=== PATIENT | male | born 1940 | race Caucasian/White ===

== ENCOUNTER 2021-06-19 07:54 | Inpatient (IN) | payer MEDICARE, BC ==
[~2021-06-19] VITALS: Ht 182.9 cm; Wt 100.1 kg
--- NOTE | 2021-06-19 08:09 | PHYS DOC ---
General Adult EDM: Chief Complaint: WEAKNESS/GENERALIZED HPI: HPI: 81-year-old male presents with weakness. The patient woke up at 430 this morning to go to the restroom and he felt weak but was able to get to the bathroom with his cane. He woke up again around 5:30 AM and was too weak to stand on his own. He slowly crumpled to the floor and called 911. He denies any injuries. The patient was feeling fine yesterday. He does not have any other specific complaints at this time. He denies fever or chills. Denies any falls or trauma. He has had no medication changes. He did not take any of his medications this morning prior to getting to the ER. On arrival his blood pressure is elevated. The patient lives alone. Review of Systems: Review of Systems: Constitutional: Denies fever or chills. Generalized weakness. Eyes: Denies change in visual acuity HENT: Denies nasal congestion or sore throat Respiratory: Denies cough or shortness of breath Cardiovascular: Denies chest pain or edema GI: Denies abdominal pain, nausea, vomiting, bloody stools or diarrhea : Denies dysuria Musculoskeletal: Denies back pain or joint pain Integument: Denies rash Neurologic: Denies headache, focal weakness or sensory changes Endocrine: Denies polyuria or polydipsia Lymphatic: Denies swollen glands Psychiatric: Denies depression or anxiety Allergies: Allergies: Allergies Coded Allergies Type Severity Reaction Last Updated Verified No Known Drug Allergies 06/19/21 No Physical Exam: PE: Constitutional: Well developed, well nourished, no acute distress, non-toxic appearance. [] HENT: Normocephalic, atraumatic, bilateral external ears normal, oropharynx moist, no oral exudates, nose normal. [] Eyes: PERRLA, EOMI, conjunctiva normal, no discharge. [] Neck: Normal range of motion, no tenderness, supple, no stridor. [] Cardiovascular: Heart rate regular rhythm, no murmur [] Lungs & Thorax: Bilateral breath sounds clear to auscultation [] Abdomen: Bowel sounds normal, soft, no tenderness, no masses, no pulsatile masses. [] Skin: Warm, dry, no erythema, no rash. [] Back: No tenderness, no CVA tenderness. [] Extremities: No tenderness, no cyanosis, no clubbing, ROM intact, no edema. [] Neurologic: Alert and oriented X 3, normal motor function, normal sensory function, no focal deficits noted. [] Psychologic: Affect normal, judgement normal, mood normal. [] EKG: EKG: Sinus rhythm, rate 56, normal axis, no ST elevation or depression. Prolonged KS interval of 288. [] Radiology/Procedures: Radiology/Procedures: [] Impressions: EXAM: CHEST 1 VIEW History: Weakness COMPARISON: None available. TECHNIQUE: Single portable radiograph of the chest FINDINGS: The cardiac silhouette is unremarkable. The lungs are clear bilaterally. The costophrenic sulci are clear and well demarcated. IMPRESSION: No radiographic evidence of an acute cardiopulmonary process. Electronically signed by: Bert Oliveira MD (06/19/2021 8:45 AM) [id number] DICTATED AND SIGNED BY: BERT OLIVEIRA MD DATE: 06/19/21 0843 CC: JENNA GIRON DO; SNOW CAZARES ~MTH0 0 CT HEAD INDICATION: Weakness COMPARISON: None Available. Exposure: One or more of the following individualized dose reduction techniques were utilized for this examination: 1. Automated exposure control 2. Adjustment of the mA and/or kV according to patient size 3. Use of iterative reconstruction technique TECHNIQUE: 5 mm contiguous axial images were obtained from the skull base to the vertex in both bone and soft tissue algorithm. FINDINGS: No abnormal attenuation within the brain parenchyma. No evidence of acute intracranial hemorrhage. No extra-axial fluid collections. No mass effect or midline shift. Ventricular size is appropriate. Basal cisterns are patent. No fractures identified.Laughlin-white differentiation is preserved.Globes and orbits are within normal limits. Mild opacification of the right mastoid air cells. IMPRESSION: 1. No acute intracranial findings. 2. Mild opacification of the right mastoid air cells could be secondary to fluid or mastoiditis. Correlate clinically. Electronically signed by: Bert Oliveira MD (06/19/2021 10:27 AM) [id number] DICTATED AND SIGNED BY: BERT OLIVEIRA MD DATE: 06/19/21 1021 CC: JENNA GIRON DO; TROY LEUNG MD ~MTH0 0 Heart Score: C/O Chest Pain: N/A Risk Factors: Risk Factors: DM, Current or recent (<one month) smoker, HTN, HLP, family history of CAD, obesity. Risk Scores: Score 0 - 3: 2.5% MACE over next 6 weeks - Discharge Home Score 4 - 6: 20.3% MACE over next 6 weeks - Admit for Clinical Observation Score 7 - 10: 72.7% MACE over next 6 weeks - Early Invasive Strategies Course & Med Decision Making: Course & Med Decision Making Pertinent Labs and Imaging studies reviewed. (See chart for details) The patient's EKG is negative for acute findings. His chest x-ray is negative for acute findings. His labs are unremarkable. We will give the patient 0.2 clonidine for his elevated blood pressure. We attempted to get the patient out of bed he feels like his right leg just has no strength. He can feel us touching the extremity. Head CT is pending. Head CT is negative for acute findings. There is partial opacification of mastoid cells. The patient does not have any tenderness in this area. See patient read for more details. He is having periods of bradycardia getting down into the 40s and even the 30s. I have paged cardiology. I spoke with the nurse practitioner for cardiology and she believes the patient can be admitted to this facility at this time. We will not give him any more AV asuncion blocking medications. Have ordered 0.5 of atropine and it has improved the patient's blood pressure and heart rate. I spoke with Dr. Carballo and he has accepted the patient for admission. [] Ponce Disclaimer: Ponce Disclaimer: This electronic medical record was generated, in whole or in part, using a voice recognition dictation system. Departure Departure: Impression: Primary Impression: Bradycardia Additional Impression: Weakness Disposition: ADMITTED INPATIENT Admitting Physician: Carine Carballo Condition: STABLE JENNA GIRON Jun 19, 2021 08:09
[2021-06-19 08:33] LABS: BASO # 0.1 x10^3/uL (0.0-0.2); BASO % 1 % (0-3); EOS # 0.1 x10^3/uL (0.0-0.7); EOS % 1 % (0-3); HEMATOCRIT 45.4 % (39.0-53.0); HEMOGLOBIN 15.2 g/dL (13.0-17.5); LYMPH # 1.1 x10^3/uL (1.0-4.8); LYMPH % 16 % (24-48); MEAN CORPUSCULAR HEMOGLOBIN 31 pg (25-35); MEAN CORPUSCULAR HGB CONC 34 g/dL (31-37); MEAN CORPUSCULAR VOLUME 93 fL (79-100); MONO # 0.4 x10^3/uL (0.0-1.1); MONO % 6 % (0-9); NEUT # 5.1 x10^3uL (1.8-7.7); NEUT % 76 % (31-73); PLATELET COUNT 156 x10^3/uL (140-400); RED BLOOD COUNT 4.87 x10^6/uL (4.30-5.70); RED CELL DISTRIBUTION WIDTH 14.7 % (11.5-14.5); WHITE BLOOD COUNT 6.7 x10^3/uL (4.0-11.0)
--- NOTE | 2021-06-19 08:40 | EKG ---
[address] [address] Test Date: 2021-06-19 Test Time: 08:31:13 Pat Name: TAHIR TATE Department: Room: Gender: M [employer] Operator: DOMINIQUE : 1940 Requested By: JENNA GIRON Order Number: [id number] Reading MD: Measurements Intervals [place] Rate: 56 P: 0 DE: 288 QRS: 31 QRSD: 76 T: 40 QT: 420 QTc: 408 Interpretive Statements SINUS RHYTHM ATRIAL PREMATURE COMPLEX(ES), BIGEMINY PROLONGED DE INTERVAL QRS(T) CONTOUR ABNORMALITY CONSISTENT WITH ANTEROSEPTAL INFARCT AGE UNDETERMINED T ABNORMALITY IN INFERIOR LEADS ABNORMAL ECG RI6.02 No previous ECG available for comparison
[2021-06-19 08:41] LABS: CALCIUM 8.9 mg/dL (8.5-10.1); GFR 71.9; POTASSIUM 4.5 mmol/L (3.5-5.1)
[2021-06-19 08:46] LABS: BILIRUBIN,URINE NEG (NEG); CLARITY,URINE CLEAR; COLOR,URINE YELLOW; GLUCOSE,URINE NEG (NEG); NITRITE,URINE NEG (NEG); UROBILINOGEN,URINE 0.2 mg/dL (0.2 mg/dL)
[2021-06-19 08:47] LABS: BACTERIA,URINE 0 /HPF (0-FEW); SQUAMOUS EPITHELIAL CELL,UR OCC /LPF; WBC,URINE OCC /HPF (0-4)
--- NOTE | 2021-06-19 08:48 | RAD ---
EXAM: CHEST 1 VIEW History: Weakness COMPARISON: None available. TECHNIQUE: Single portable radiograph of the chest FINDINGS: The cardiac silhouette is unremarkable. The lungs are clear bilaterally. The costophrenic sulci are clear and well demarcated. IMPRESSION: No radiographic evidence of an acute cardiopulmonary process. Electronically signed by: Bert Oliveira MD (06/19/2021 8:45 AM) [id number]
[2021-06-19 08:50] LABS: ALBUMIN 4.1 g/dL (3.4-5.0); ALBUMIN/GLOBULIN RATIO 1.2 (1.0-1.7); TOTAL BILIRUBIN 0.7 mg/dL (0.2-1.0); TOTAL PROTEIN 7.6 g/dL (6.4-8.2)
[2021-06-19] MEDS ORDERED: cloNIDine HCL 0.1 MG TABLET ONE (09:29)
[2021-06-19] MEDS ORDERED: cloNIDine HCL 0.2 MG TABLET PO ONE (09:45)
--- NOTE | 2021-06-19 10:30 | RAD ---
CT HEAD INDICATION: Weakness COMPARISON: None Available. Exposure: One or more of the following individualized dose reduction techniques were utilized for thi s examination: 1. Automated exposure control 2. Adjustment of the mA and/or kV according to patient size 3. Use of iterative reconstruction technique TECHNIQUE: 5 mm contiguous axial images were obtained from the skull base to the vertex in both bone and soft tissue algorithm. FINDINGS: No abnormal attenuation within the brain parenchyma. No evidence of acute intracranial hemorrhage. No extra-axial fluid collections. No mass effect or midline shift. Ventricular size is appropriate. Basal cisterns are patent. No fractures identified.Laughlin-white differentiation is preserved.Globes and orbits are within normal l imits. Mild opacification of the right mastoid air cells. IMPRESSION: 1. No acute intracranial findings. 2. Mild opacification of the right mastoid air cells could be secondary to fluid or mastoiditis. Keith elate clinically. Electronically signed by: Bert Oliveira MD (06/19/2021 10:27 AM) [id number]
[2021-06-19] MEDS ORDERED: ATROPINE 0.5 MG/5 ML DISP.SYRIN. IV ONE (11:30)
--- NOTE | 2021-06-19 13:07 | EKG ---
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
[2021-06-19] MEDS ORDERED: LISINOPRIL 10 MG TABLET PO ONE (13:30)
[2021-06-19] MEDS ORDERED: amLODIPine BESYLATE 10 MG TABLET PO ONE (14:00)
[2021-06-19] MEDS ORDERED: PANTOPRAZOLE 40 MG TABLET. PO ONE (14:00)
--- NOTE | 2021-06-19 14:00 | PDOC2 ---
CONSULT DOS: DATE: 06/19/21 TIME: 14:00 Reason for Consult: Bradycardia Referring Physician: Dr. Carballo Chief Complaint Right sided weakness Source: Chart review, Patient Problem List Problems Medical Problems: (1) Bradycardia Status: Acute (2) Weakness Status: Acute History of Present Illness 81 y/o male without any previous cardiac history presented with right sided weakness, tingling and numbness in right arm and leg that he noticed this morning when he got out of bed to use the restroom. He was found to be bradycardic in ED that got worse after he received clonidine for uncontrolled HTN. This however improved after IV atropine given in ED. He denied any dizziness or syncope. He also denied any chest pain, orthopnea/PND or palpitations. Past Medical History Hypertension Hyperlipidemia Hiatal hernia Gastroesophageal reflux disease. Past Surgical History Left total hip arthroplasty Cholecystectomy Hernia repair Tonsillectomy Family History HTN, CAD Social History Quit smoking several years ago, occasional alcohol use, denied any drug use Current Medications Current Medications Clonidine HCl (Catapres) 0.2 mg 1X ONCE PO Last administered on 06/19/21at 09:39; Start 06/19/21 at 09:45; Stop 06/19/21 at 09:46; Status DC Clonidine HCl (Catapres) 0.1 mg STK-MED ONCE .ROUTE ; Start 06/19/21 at 09:29; Stop 06/19/21 at 09:30; Status DC Atropine Sulfate (ATROPINE 0.5mg SYRINGE) 0.5 mg 1X ONCE IV Last administered on 06/19/21at 11:48; Start 06/19/21 at 11:30; Stop 06/19/21 at 11:31; Status DC Lisinopril (Prinivil) 20 mg 1X ONCE PO Last administered on 06/19/21at 13:32; Start 06/19/21 at 13:30; Stop 06/19/21 at 13:31; Status DC Amlodipine Besylate (Norvasc) 10 mg DAILY PO ; Start 06/20/21 at 09:00 Lisinopril (Prinivil) 10 mg DAILY PO ; Start 06/20/21 at 09:00 Pantoprazole Sodium (Protonix) 40 mg DAILYAC PO ; Start 06/20/21 at 07:30 Simvastatin (Zocor) 20 mg HS PO ; Start 06/19/21 at 21:00 Amlodipine Besylate (Norvasc) 10 mg 1X ONCE PO ; Start 06/19/21 at 14:00; Stop 06/19/21 at 14:01 Pantoprazole Sodium (Protonix) 40 mg 1X ONCE PO ; Start 06/19/21 at 14:00; Stop 06/19/21 at 14:01 Allergies: Coded Allergies: No Known Drug Allergies (Unverified , 06/19/21) PSYCHOLOGICAL ROS: No: Hallucinations Eyes: No: Loss of vision HEENT: No: Epistaxis Respiratory: No: Shortness of breath Cardiovascular: No: Chest Pain Gastrointestinal: No: Vomiting Genitourinary: No: [place] Neurological: No: Seizures Skin: No: Rash General: Alert, Oriented X3 HEENT: Atraumatic Lungs: Clear to auscultation Heart: Regular rate Abdomen: Soft Extremities: No edema Psych/Mental Status: Mood NL VITALS Vital Signs Date Time Temp Pulse Resp B/P (MAP) Pulse Ox O2 Delivery O2 Flow Rate FiO2 06/19/21 13:32 55 184/76 06/19/21 13:30 24 97 Room Air 06/19/21 08:05 98.9 Labs Laboratory Tests Test 06/19/21 08:00 06/19/21 08:15 Urine Collection Type Unknown Urine Color Yellow Urine Clarity Clear Urine pH 7.0 Urine Specific [place] 1.020 Urine Protein 100 mg/dl (NEG-TRACE) Urine Glucose (UA) Neg mg/dL (NEG) Urine Ketones (Stick) Neg mg/dL (NEG) Urine Blood Small (NEG) Urine Nitrite Neg (NEG) Urine Bilirubin Neg (NEG) Urine Urobilinogen Dipstick 0.2 mg/dL (0.2 mg/dL) Urine Leukocyte Esterase Neg (NEG) Urine RBC 6-10 /HPF (0-2) Urine WBC Occ /HPF (0-4) Urine Squamous Epithelial Cells Occ /LPF Urine Bacteria 0 /HPF (0-FEW) White Blood Count 6.7 x10^3/uL (4.0-11.0) Red Blood Count 4.87 x10^6/uL (4.30-5.70) Hemoglobin 15.2 g/dL (13.0-17.5) Hematocrit 45.4 % (39.0-53.0) Mean Corpuscular Volume 93 fL (79-100) Mean Corpuscular Hemoglobin 31 pg (25-35) Mean Corpuscular Hemoglobin Concent 34 g/dL (31-37) Red Cell Distribution Width 14.7 % (11.5-14.5) Platelet Count 156 x10^3/uL (140-400) Neutrophils (%) (Auto) 76 % (31-73) Lymphocytes (%) (Auto) 16 % (24-48) Monocytes (%) (Auto) 6 % (0-9) Eosinophils (%) (Auto) 1 % (0-3) Basophils (%) (Auto) 1 % (0-3) Neutrophils # (Auto) 5.1 x10^3uL (1.8-7.7) Lymphocytes # (Auto) 1.1 x10^3/uL (1.0-4.8) Monocytes # (Auto) 0.4 x10^3/uL (0.0-1.1) Eosinophils # (Auto) 0.1 x10^3/uL (0.0-0.7) Basophils # (Auto) 0.1 x10^3/uL (0.0-0.2) Sodium Level 141 mmol/L (136-145) Potassium Level 4.5 mmol/L (3.5-5.1) Chloride Level 105 mmol/L (98-107) Carbon Dioxide Level 25 mmol/L (21-32) Anion Gap 11 (6-14) Blood Urea Nitrogen 17 mg/dL (8-26) Creatinine 1.0 mg/dL (0.7-1.3) Estimated GFR (Cockcroft-Gault) 71.9 BUN/Creatinine Ratio 17 (6-20) Glucose Level 144 mg/dL (70-99) Calcium Level 8.9 mg/dL (8.5-10.1) Total Bilirubin 0.7 mg/dL (0.2-1.0) Aspartate Amino Transf (AST/SGOT) 36 U/L (15-37) Alanine Aminotransferase (ALT/SGPT) 39 U/L (16-63) Alkaline Phosphatase 108 U/L (46-116) Troponin I Quantitative < 0.017 ng/mL (0-0.055) AJ-Asr-L-Type Natriuretic Peptide 221 pg/mL (0-449) Total Protein 7.6 g/dL (6.4-8.2) Albumin 4.1 g/dL (3.4-5.0) Albumin/Globulin Ratio 1.2 (1.0-1.7) Assessment/Plan 1. Right sided weakness, tingling and numbness: ? TIA. CT head negative for acute intracranial process. Consider neurology consultation 2. 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 HR improved after atropine administration in ED. Patient denied any previous cardiac history or any history if dizziness or syncope. Continue to monitor tele and consider outpatient event monitor and 2D echo 3. Accelerated HTN: resume home anti-hypertensives and titrate for better control 4. HLP: statins Thank you for your consultation MARTIR MEADOWS MD Jun 19, 2021 14:00
[2021-06-19] MEDS ORDERED: ONDANSETRON PF 4 MG/2 ML VIAL. IVP PRN (14:30)
[2021-06-19] MEDS ORDERED: ACETAMINOPHEN 325 MG TABLET PO PRN (14:30)
[2021-06-19] MEDS ORDERED: ASPIRIN CHEWABLE 81 MG TABLET. PO ONE (14:30)
--- NOTE | 2021-06-19 14:30 | HP ---
ADMIT DATE: 06/19/2021 HISTORY OF PRESENT ILLNESS: The patient is an 81-year-old male patient who presented to the Emergency Room with a complaint of weakness. The patient woke up at 4:30 this morning to go to the restroom and felt weak, but was able to get to the bathroom with his cane. He woke up again at around 5:30 and was too weak to stand on his own. He slowly crumbled to the floor and called 911. He denied any injuries. The patient was feeling fine yesterday. He does not have any other specific complaints at this time. In particular, denied any chest pain, shortness of breath, orthopnea, paroxysmal nocturnal dyspnea. There were no changes in his medication. He has not taken any of his medication prior to arrival to the Emergency Room where he was evaluated and was found to be hypertensive, had intermittent episodes of bradycardia, possible complete second-degree and complete heart block, his first degree. His EKG showed the consistent prolonged CA interval. The patient was admitted for further evaluation and treatment. His heart rate was down in the mid 30 and was given atropine and heart rate accelerated from 50-60 beats per minute. He has had lab work done, which were unremarkable. His first set of cardiac enzyme was less than 0.017. PAST MEDICAL HISTORY: Significant for hypertension, hyperlipidemia, hiatal hernia and gastroesophageal reflux disease. PAST SURGICAL HISTORY: Significant for left total hip arthroplasty, cholecystectomy, periumbilical hernia repair, tonsillectomy and had colonoscopy. ALLERGIES: He has no known drug allergies. MEDICATIONS: He is currently on amlodipine besylate 10 mg once a day, lisinopril 20 mg once a day, omeprazole 40 mg once a day and simvastatin 20 mg at bedtime. FAMILY HISTORY: Has one brother younger at age of 78 because of diabetes complications. Father at age of 79 because of lung cancer. Mother at age of 77 because of myocardial infarction. SOCIAL HISTORY: He is , has five children from previous marriage. He quit smoking about 35 years ago. He drinks one beer a week. He does not use any drugs. 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 REVIEW OF SYSTEMS: The patient denied any blurring of vision, cataracts, glaucoma or macular degeneration. Denied any earache, tinnitus or sensory deafness. Denied any nosebleed, stuffy nose or postnasal drip. Denied any sore throat, sore tongue, toothache, hoarseness of voice or difficulty swallowing. Denied any nausea, vomiting, diarrhea or constipation. Denied any hematemesis, melena or hematochezia. Denied any dysuria, frequency or hematuria. He denied any chest pain, shortness of breath, orthopnea or paroxysmal nocturnal dyspnea. Denied any cough, phlegm or hemoptysis. Denied any chills, rigors or fever. He did not really complain of any dizziness or lightheadedness, but rather generalized weakness. PHYSICAL EXAMINATION: GENERAL: On arrival to the Emergency Room, the patient looked well and was clearly in no apparent respiratory distress. There was no pallor, jaundice, cyanosis or thyromegaly. No jugular venous distention. No limb edema. VITAL SIGNS: His heart rate was 62, blood pressure was 192/81, temperature was 98.9, respiratory rate 24, and oxygen saturation was 97% on room air. HEAD, EYES, EARS, NOSE AND THROAT: Normocephalic, atraumatic. NECK: Supple. HEART: Normal first and second heart sounds. No gallop, rub or murmur. CHEST: Clear to auscultation. No crepitation or rhonchi. ABDOMEN: Distended, soft, nontender. NEUROLOGIC: He is awake, alert, responding appropriately. All cranial nerves intact. He moves extremities without difficulty. LABORATORY DATA: His lab work on arrival showed a white cell count of 6700, hemoglobin 15, hematocrit 45, MCV 93, and platelet count of 156,000. His chemistry showed a serum sodium 141, potassium 4.5, chloride 105, bicarbonate 25, anion gap of 11, BUN 17, creatinine 1, estimated GFR was 72 mL per minute. His glucose was 44, calcium was 8.9. Total bilirubin, AST, ALT, alkaline phosphatase were normal. His troponin I was less than 0.017. Beta natriuretic peptide was 221. Total protein 7.6, albumin was 4.1. Urinalysis essentially unremarkable. The patient has had a CT scan of the head showed no acute intracranial findings, mild opacification of the right mastoid air cells could be secondary to fluid or mastoiditis. His chest x-ray showed the cardiac silhouette is unremarkable. The lungs are clear bilaterally costophrenic sulci are clear and well demarcated. ASSESSMENT AND PLAN: The patient was admitted with weakness and bradycardia with intermittent heart block. Other medical problems include hypertension, hyperlipidemia, gastroesophageal reflux disease and large hiatal hernia. My plan is to continue with all his medication as none of them will slow the heart rate and consult the Cardiology team, do two more sets of cardiac enzyme and fasting lipid profile as he eventually require permanent pacemaker. YESIKA DR: Diana TID: [id number]
[2021-06-19 18:12] VITALS: BP 192/117
[2021-06-19 19:46] VITALS: BP 193/68
[2021-06-19] MEDS ORDERED: SIMVASTATIN 20 MG TABLET PO SCH (21:00)
[2021-06-20 00:12] VITALS: BP 191/68
--- NOTE | 2021-06-20 01:05 | NUR ---
The patient, TAHIR TATE, 81 y/o, M admitted by ELIJAH FRAIRE MD, was given written information regarding hospital policies, unit procedures and contact persons. Valuables were checked and vital signs obtained. PT stated he is a DNR and has a living will at home. Code status verified with second nurse and status changed to DNR. Reviewed with PT his PMH, PSH, SH, FH and medications.
--- NOTE | 2021-06-20 01:52 | EKG ---
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
[2021-06-20 01:57] VITALS: BP 191/71
[2021-06-20] MEDS ORDERED: hydrALAZINE 20 MG/ML VIAL. IV PRN ×2 (02:00→09:45)
[2021-06-20] MEDS ORDERED: ATROPINE 0.5 MG/5 ML DISP.SYRIN. IV PRN (02:00)
--- NOTE | 2021-06-20 04:41 | NUR ---
PT's heart rate consistently in 20s with elevated blood pressure. Dr. Chao telephoned. Orders placed. PT is now resting comfortably, heart rate in mid to high 50s. BP will be reassessed.
[2021-06-20 06:33] VITALS: BP 173/76
[2021-06-20 06:47] LABS: CALCIUM 8.6 mg/dL (8.5-10.1); CREATININE 1.1 mg/dL (0.7-1.3); GFR 64.4
[2021-06-20] MEDS ORDERED: PANTOPRAZOLE 40 MG TABLET. PO SCH (07:30)
[2021-06-20] MEDS ORDERED: LISINOPRIL 10 MG TABLET PO SCH (09:00)
[2021-06-20] MEDS ORDERED: amLODIPine BESYLATE 5 MG TABLET PO SCH (09:00)
[2021-06-20 09:15] VITALS: BP 196/71
--- NOTE | 2021-06-20 09:46 | PDOC ---
CARDIO Progress Notes Date & Time Date of Service DATE: 06/20/21 TIME: 09:41 Time of Evaluation 09:41 Subjective Notes No chest pain, palpitations, dizziness. Does report mild right sided weakness this morning Vitals Vitals Vital Signs Date Time Temp Pulse Resp B/P (MAP) Pulse Ox O2 Delivery O2 Flow Rate FiO2 06/20/21 09:15 97.5 58 20 196/71 (112) 94 Room Air Weight Weight [ ] Input and Output I.O. Intake and Output 06/20/21 07:00 Intake Total 400 ml Output Total 1425 ml Balance -1025 ml Intake Oral 400 ml Output Urine Total 1425 ml # Voids 2 Laboratory Labs Laboratory Tests Test 06/19/21 08:00 06/19/21 08:15 06/19/21 13:45 06/19/21 18:38 Urine Collection Type Unknown Urine Color Yellow Urine Clarity Clear Urine pH 7.0 Urine Specific [place] 1.020 Urine Protein 100 mg/dl (NEG-TRACE) Urine Glucose (UA) Neg mg/dL (NEG) Urine Ketones (Stick) Neg mg/dL (NEG) Urine Blood Small (NEG) Urine Nitrite Neg (NEG) Urine Bilirubin Neg (NEG) Urine Urobilinogen Dipstick 0.2 mg/dL (0.2 mg/dL) Urine Leukocyte Esterase Neg (NEG) Urine RBC 6-10 /HPF (0-2) Urine WBC Occ /HPF (0-4) Urine Squamous Epithelial Cells Occ /LPF Urine Bacteria 0 /HPF (0-FEW) White Blood Count 6.7 x10^3/uL (4.0-11.0) Red Blood Count 4.87 x10^6/uL (4.30-5.70) Hemoglobin 15.2 g/dL (13.0-17.5) Hematocrit 45.4 % (39.0-53.0) Mean Corpuscular Volume 93 fL (79-100) Mean Corpuscular Hemoglobin 31 pg (25-35) Mean Corpuscular Hemoglobin Concent 34 g/dL (31-37) Red Cell Distribution Width 14.7 % (11.5-14.5) Platelet Count 156 x10^3/uL (140-400) Neutrophils (%) (Auto) 76 % (31-73) Lymphocytes (%) (Auto) 16 % (24-48) Monocytes (%) (Auto) 6 % (0-9) Eosinophils (%) (Auto) 1 % (0-3) Basophils (%) (Auto) 1 % (0-3) Neutrophils # (Auto) 5.1 x10^3uL (1.8-7.7) Lymphocytes # (Auto) 1.1 x10^3/uL (1.0-4.8) Monocytes # (Auto) 0.4 x10^3/uL (0.0-1.1) Eosinophils # (Auto) 0.1 x10^3/uL (0.0-0.7) Basophils # (Auto) 0.1 x10^3/uL (0.0-0.2) Sodium Level 141 mmol/L (136-145) Potassium Level 4.5 mmol/L (3.5-5.1) Chloride Level 105 mmol/L (98-107) Carbon Dioxide Level 25 mmol/L (21-32) Anion Gap 11 (6-14) Blood Urea Nitrogen 17 mg/dL (8-26) Creatinine 1.0 mg/dL (0.7-1.3) Estimated GFR (Cockcroft-Gault) 71.9 BUN/Creatinine Ratio 17 (6-20) Glucose Level 144 mg/dL (70-99) Calcium Level 8.9 mg/dL (8.5-10.1) Total Bilirubin 0.7 mg/dL (0.2-1.0) Aspartate Amino Transf (AST/SGOT) 36 U/L (15-37) Alanine Aminotransferase (ALT/SGPT) 39 U/L (16-63) Alkaline Phosphatase 108 U/L (46-116) Troponin I Quantitative < 0.017 ng/mL (0-0.055) < 0.017 ng/mL (0-0.055) < 0.017 ng/mL (0-0.055) LK-Xgv-G-Type Natriuretic Peptide 221 pg/mL (0-449) Total Protein 7.6 g/dL (6.4-8.2) Albumin 4.1 g/dL (3.4-5.0) Albumin/Globulin Ratio 1.2 (1.0-1.7) Test 06/19/21 20:20 06/20/21 06:12 Coronavirus (COVID-19)(PCR) Negative (NEGATIVE) SARS-CoV-2 Antigen (Rapid) Negative (NEGATIVE) Sodium Level 140 mmol/L (136-145) Potassium Level 4.0 mmol/L (3.5-5.1) Chloride Level 105 mmol/L (98-107) Carbon Dioxide Level 26 mmol/L (21-32) Anion Gap 9 (6-14) Blood Urea Nitrogen 16 mg/dL (8-26) Creatinine 1.1 mg/dL (0.7-1.3) Estimated GFR (Cockcroft-Gault) 64.4 Glucose Level 116 mg/dL (70-99) Calcium Level 8.6 mg/dL (8.5-10.1) Physical Exams HEENT: Neck Supple W Full Motion Chest: Symmetric Lungs: Clear to Auscultation Heart: other (2nd degress type II AVB rate 65) Abdomen: Soft N/T Extremities: No Edema Neurology: alert, oriented, follow commands Assessment Assessment 1. Right sided weakness, tingling and numbness: ? TIA vs acute CVA. CT head negative for acute intracranial process. Neurology consulted 2. Bradyarrhythmia/SSS: noted with high-grade AV block. In complete heart block overnight with HR in low 30's. Occasional period in upper 20's. No syncope. s/p atropine. Presently second degree type II with HR in mid 60's. 3. Accelerated HTN: labile 4. HLP: statins Recommendations Will need PPM implantation for SSS. R/b discussed with patient and he is agreeable Will transfer down to [facility] this morning Will arrange for MRI of brain prior to PPM implant given ongoing right-sided weakness Keep NPO Hydralazine IV PRN PRIYA FREY APRN Jun 20, 2021 09:46
--- NOTE | 2021-06-20 10:15 | DS ---
DATE OF DISCHARGE: 06/20/2021 ATTENDING PHYSICIAN: Dr. Carballo/Dr. Mccabe. FINAL DISCHARGE DIAGNOSES: 1. Complete heart block. 2. Syncopal episode due to heart block. 3. Recent transient ischemic attack symptoms. 4. Bradycardia. 5. Gastroesophageal reflux disease and hiatal hernia. 6. Essential hypertension. 7. Hyperlipidemia. HISTORY AND PHYSICAL: The patient is an 81-year-old gentleman with known TIAs. He presented with frequent falls and an ECG consistent with heart block. Heart rate was in the 30. PHYSICAL EXAMINATION: Please see the dictated note. PERTINENT LABORATORY AND X-RAY STUDIES: Hemoglobin 15.2 g/dL, white count 6700. Electrolytes within normal range. Creatinine is 1.0 mg percent. Three sets of cardiac enzymes negative for coronary ischemia. Chest x-ray as noted. ECG showed evidence of complete heart block with ventricular escape beats of 30. COURSE IN HOSPITAL: The patient was admitted and placed on telemetry monitoring. He did receive several doses of atropine for symptomatic bradycardia. Formal cardiology consultation was obtained. Arrangements were then made for the patient to be transferred to [facility] for placement of permanent pacemaker. He is not on any prescription meds or beta blockers. Therefore, on the second hospital day, he was transferred to [facility] via ambulance. Dr. Carballo will admit him there with consult to cardiology services. In addition, MRI of the brain has been ordered, they will have formal neurologic consultation there too. The patient was then discharged from our hospital in stable condition with explicit written and followup care. TOTAL DISCHARGE TIME SPENT: [address]: Kong TID: [id number] CC: AJAY GRIMM MD
--- NOTE | 2021-06-20 11:10 | NUR ---
Nursing note pt discharged at 0940 via ems for transfer to [facility] pr given written and verbal instructions with verbal statement of understanding achieved.
== END 2021-06-20 10:27 | disposition short-term general hospital (02) | DRG 310 ==
LOC: ER 07:54 → 1 SOUTH 21:52
PROVIDERS: ADMIT Internal Medicine; ATTEND Internal Medicine
DX: I44.2 Atrioventricular block, complete (principal); E78.5 Hyperlipidemia, unspecified; K21.9 Gastro-esophageal reflux disease without esophagitis; I10 Essential (primary) hypertension; Z96.642 Presence of left artificial hip joint; R29.6 Repeated falls; K44.9 Diaphragmatic hernia without obstruction or gangrene; I49.5 Sick sinus syndrome; Z87.891 Personal history of nicotine dependence; Z83.3 Family history of diabetes mellitus; Z82.49 Family history of ischemic heart disease and other diseases of the circulatory system; Z80.1 Family history of malignant neoplasm of trachea, bronchus and lung; Z20.822 Contact with and (suspected) exposure to COVID-19
CPT/HCPCS: 36415; 70450; 71045; 80048; 80053; 80061; 81001; 83880; 84443; 84484; 85025; 87426; 93005; 96374; J0360; J0461; U0003; 99285-25

== ENCOUNTER → 2021-11-15 | Outpatient (CLI) | payer MEDICARE, BC ==
[~2021-11-15] MED LIST: REGADENOSON 0.4 MG/5 ML DISP.SYRIN. IV ONE
--- NOTE | 2021-11-18 14:06 | RAD ---
MR#: [id number] Date of Study: 11/15/2021 Ordering Physician: MARTIR MEADOWS Referring Physician: KRISTINE FORRESTER Tech: CHAMP Hdz APPROVED REPORT Test Type: Pharmacological Stress Nurse/Tech: CHAMP Hdz Test Indications: Cardiac Block Cardiac History: mi in 2020 - pacemaker Medications: see ehr Medical History: see ehr Resting ECG: AV and V paced with underlying SR Resting Heart Rate: 68 bpm Resting Blood Pressure: 145/66mmHg Pretest Chest Pain: None Nurse/Tech Notes Consent: The procedure was explained to the patient in lay terms. Informed consent was witnessed. Kimo eout was entered into [employer]. History and Stress Test performed by CHAMP Hdz Pharm. Details Pharmacologic stress testing was performed using 0.4mg per 5ml of regadenoson given intravenously ove r 7-10 seconds. There waswas no low-level exercise performed along with the infusion POST EXERCISE Reason for Termination: Infusion complete Max HR: 92 bpm Max Blood Pressure: 127/53mmHg Blood Pressure response to exercise: Normal blood pressure response during stress. Chest Pain: No. INTERPRETATION Stress EKG Conclusion: Non-diagnostic EKG due to pacing artifact. Imaging Protocol IMAGE PROTOCOL: Rest Tc-99m/stress Tc-99m 1 day Rest: Stress: Viability: Radiopharm.Tc99m [id number] Sestamibi Dose10.5mCi 33mCi Duration 15min. 10min. Img Date 11/15/2021 11/15/2021 Inj-Img [id number]. 60min. Post-Injection Exercise: none Rest Admin Site:IV - Left AntecubitalAdministrator: CHAMP Hdz Stress Admin Site: IV - Left AntecubitalAdministrator: CHAMP Hdz STRESS DATA End Diast. Vol.111.0mlAv. Heart Rate68.0bpm End Syst. Vol.34.0mlCO Index BSA5.3L/min Myocardial Snwp797.0gEject. Xneiizkr04.0% Stress Rates Pk. Fill Rate2.85EDV/secLVtime Pk. Fill 259.16msec Pk. Empty Rate2.94ESV/secLVtime Pk. Uijhs136.19msec 1/3 Pk. Fill0.71EDV/sec Stress Scores Regional WT1.00Summed WT22.00 Regional WM0.00Summed WM2.00 The rest and stress images show normal perfusion, normal contraction and thickening. LV Perf. Quant 17 Seg. SSS0.00 17 Seg. SRS10.00 17 Seg. SDS0.00 Stress Defect Extent (% LAD)0.00Rest Defect Extent (% LAD)0.00Rev. Defect Extent (% LAD)0.00 Stress Defect Extent (% LCX) 2.50Rest Defect Extent (% LCX)13.80Rev. Defect Extent (% LCX)2.50 Stress Defect Extent (% RCA)0.00Rest Defect Extent (% RCA)55.60Rev. Defect Extent (% RCA)0.00 Stress Defect Extent (% BALDEV)1.50Rest Defect Extent (% BALDEV)19.10Rev. Defect Extent (% BALDEV)1.50 Other Information Quality:Average Risk Assessment: Low Risk Conclusion 1. Nondiagnostic stress EKG due to pacing artifact 2. Normal perfusion and stress. Rest images are notable for subdiaphragmatic attenuation artifact. 3. Normal EF at greater than 60% 4. Low risk study overall. Signed by : Inderjit Chao, Electronically Approved : 11/18/2021 14:05:45
== END ==
LOC: NM 08:09
PROVIDERS: ATTEND Internal Medicine Cardiovascular Disease
DX: I44.2 Atrioventricular block, complete (principal)
CPT/HCPCS: 78452; 93017; A9500; J2785